=== PATIENT | male | born 1960 | race Native Hawaiian/Other Pacific Islander ===

== ENCOUNTER 2024-03-21 00:03 | Emergency (ER) | payer OTHER, MEDICAID, SELFPAY ==
[2024-03-21] VITALS (94 sets, daily range): BP systolic 148–232; BP diastolic 70–114; PULSE 61–85; RESP 8–35; TEMP 36.7–37.2; O2SAT 92–100; BMI 38.0
--- NOTE | 2024-03-21 03:01 | ED.LOWEXIN ---
HPI - Extremity Injury (Lower) <Violeta Snyder, - Last Filed: 03/22/24 01:34> General Chief Complaint: Extremity Injury, Lower Stated Complaint: Right foot pain Time Seen by Provider: 03/21/24 02:22 Source: patient and family Mode of arrival: Wheelchair Limitations: no limitations History of Present Illness HPI Narrative: 63-year-old male history of hypertension, dyslipidemia, GERD, end-stage renal disease on dialysis for the past 7 years with a left upper extremity fistula presents with complaint of right foot pain and swelling and skin color changes of the great toe as well as 2nd and 3rd toes. Patient is unsure when this started. He does have some neuropathy reported does not check his feet every day. He states it is painful. They noticed it appear swollen, appears discolored almost like ecchymosis. Patient has had a recent will infection and had a topical antifungal but for the entire foot. He does not recall any trauma or injury. He and family did not appreciate any redness. No warmth was reported. No fevers. No chest pain or shortness of breath, no nausea or vomiting, no other GI or urinary symptoms. Patient did recently travel here from [facility] to move permanently to the area. Patient has a established locally for dialysis, he has not had any missed sessions. They are unsure exactly why he is on dialysis but takes multiple medications for hypertension. No reported history of diabetes and on no medication for diabetes. Patient has been taking his medications regularly. He has had prior left upper extremity fistula and prior hip surgery. No known drug allergies. No tobacco, alcohol or recreational drugs. Patient is establishing with Dr. Urias for primary care later this week. He is accompanied by his family. Home medications include lisinopril, gabapentin, hydralazine, statin, pantoprazole, folic acid, oxycodone. Related Data Home Medications Medication Instructions Recorded Confirmed clotrimazole-betamethasone 1 1 applic topical BID 03/21/24 03/21/24 %-0.05 % topical cream folic acid 1 mg tablet 1 mg PO DAILY 03/21/24 03/21/24 gabapentin 300 mg capsule 300 mg PO BEDTIME 03/21/24 03/21/24 hydralazine 50 mg tablet 50 mg PO Q8HR 03/21/24 03/21/24 lisinopril 10 mg tablet 10 mg PO DAILY 03/21/24 03/21/24 omega-3 acid ethyl esters 1 gram 2 cap PO BID 03/21/24 03/21/24 capsule oxycodone 5 mg tablet 5 mg PO BID PRN Severe Pain (Scale 03/21/24 03/21/24 Score 7-10) pantoprazole 40 mg tablet,delayed 40 mg PO DAILY 03/21/24 03/21/24 release simvastatin 10 mg tablet 10 mg PO QPM 03/21/24 03/21/24 Allergies Allergy/AdvReac Type Severity Reaction Status Date / Time No Known Drug Allergies Allergy Verified 03/21/24 00:11 Review of Systems <Violeta Snyder DO - Last Filed: 03/22/24 01:34> Review of Systems ROS Unobtainable: All systems reviewed & are unremarkable except as noted in HPI and below Patient History <Violeta Snyder DO - Last Filed: 03/22/24 01:34> Social History Smoking Status: Never smoker Smoking Status: Never smoker tobacco type: smokeless tobacco Substance Use Type: does not use Exam <Violeta Snyder DO - Last Filed: 03/22/24 01:34> Narrative Exam Narrative: GENERAL: Alert and oriented x three, well-appearing older male in mild distress. HEENT: Head normocephalic, atraumatic, EOMI, pupils reactive, face symmetric, moist mucous membranes NECK: Supple, full range of motion CARDIOVASCULAR: Regular rate and rhythm without murmurs, rubs or gallops. No JVD. No pretibial edema. RESPIRATORY: Breath sounds equal bilaterally, no wheezes rales or rhonchi. No tachypnea or accessory muscle use. ABDOMEN: Soft, nontender. Normoactive bowel sounds all 4 quadrants. No guarding or rebound, rigidity, no mass : No CVA tenderness EXTREMITIES: Normal range of motion, no clubbing. Neurovascularly intact. Patient has swelling, of the great toe, 2nd and 3rd toes with what appears to be ecchymosis, no warmth, no erythema appreciated. There is no clear skin breakdown. There is some fluctuance with palpation. Patient has some sensation to light touch but is nontender to palpation. Cap refill intact bilateral lower extremities. Patient's feet are warm but not hot. No pallor, cyanosis or coldness. Patient has a fistula in the left upper extremity with bruit. NEUROLOGICAL: Cranial nerves II through XII grossly intact. Moving all extremities SKIN: Warm, dry, no petechiae, no rashes or lesions otherwise noted. Initial Vital Signs Initial Vital Signs: Vital Signs Temperature 98.9 F 03/21/24 00:12 Pulse Rate 83 03/21/24 00:12 Respiratory Rate 16 03/21/24 00:12 Blood Pressure 200/95 H 03/21/24 00:12 Pulse Oximetry 100 03/21/24 00:12 Oxygen Delivery Method Room Air 03/21/24 00:12 <Violeta Hooks MD - Last Filed: 03/23/24 00:42> Initial Vital Signs Initial Vital Signs: Vital Signs Temperature 98.9 F 03/21/24 00:12 Pulse Rate 83 03/21/24 00:12 Respiratory Rate 16 03/21/24 00:12 Blood Pressure 200/95 H 03/21/24 00:12 Pulse Oximetry 100 03/21/24 00:12 Oxygen Delivery Method Room Air 03/21/24 00:12 Course <Violeta Snyder DO - Last Filed: 03/22/24 01:34> Orders Ordered: Discontinued Medications Atorvastatin Calcium (Atorvastatin 20 Mg Tablet) 40 mg PO BEDTIME KEVIN Last Admin: 03/21/24 20:57 Dose: 40 mg Documented By: LAINA Dextrose (Dextrose 50 % In Water 25 Gm/50 Ml Syringe) 25 gm IV NOW ONE Stop: 03/21/24 20:39 Last Admin: 03/21/24 20:58 Dose: 25 gm Documented By: LAINA Docusate Sodium (Docusate 100 Mg Capsule) 100 mg PO BID PRN PRN Reason: Constipation Last Admin: 03/21/24 21:51 Dose: 100 mg Documented By: KAREN Folic Acid (Folic Acid 1 Mg Tablet) 1 mg PO NOW ONE Stop: 03/21/24 06:01 Last Admin: 03/21/24 06:36 Dose: 1 mg Documented By: Hydralazine HCl (Hydralazine 25 Mg Tablet) 25 mg PO NOW ONE Stop: 03/21/24 04:25 Last Admin: 03/21/24 05:08 Dose: 25 mg Documented By: Hydralazine HCl (Hydralazine 10 Mg Tablet) 50 mg PO Q8HR KEVIN Hydralazine HCl (Hydralazine 25 Mg Tablet) 25 mg PO NOW ONE Stop: 03/21/24 06:01 Last Admin: 03/21/24 06:36 Dose: 25 mg Documented By: Hydralazine HCl (Hydralazine 20 Mg/Ml Vial) 10 mg IV Q6HR PRN PRN Reason: Hypertension Last Admin: 03/21/24 13:52 Dose: 10 mg Documented By: Admin: 03/21/24 08:09 Dose: 10 mg Documented By: RB Hydralazine HCl (Hydralazine 25 Mg Tablet) 50 mg PO Q8HR KEVIN Last Admin: 03/21/24 21:09 Dose: 50 mg Documented By: Admin: 03/21/24 13:05 Dose: 50 mg Documented By: ANA Ceftriaxone Sodium 2,000 mg/ (Sodium Chloride) 100 mls @ 200 mls/hr IV NOW ONE Stop: 03/21/24 05:08 Last Infusion: 03/21/24 05:50 Dose: Infused Documented By: Admin: 03/21/24 05:13 Dose: 200 mls/hr Documented By: Vancomycin HCl/Dextrose (Vancomycin) 1,500 mg in 300 mls @ 200 mls/hr IV NOW ONE Stop: 03/21/24 06:36 Last Infusion: 03/21/24 07:36 Dose: Infused Documented By: Admin: 03/21/24 05:56 Dose: 200 mls/hr Documented By: Ceftriaxone Sodium 2,000 mg/ (Sodium Chloride) 100 mls @ 200 mls/hr IV NOW ONE Stop: 03/22/24 05:01 Calcium Gluconate 4.65 meq/ (Sodium Chloride) 60 mls @ 180 mls/hr IV NOW ONE Stop: 03/21/24 20:57 Last Infusion: 03/21/24 21:30 Dose: Infused Documented By: Admin: 03/21/24 20:59 Dose: 180 mls/hr Documented By: LAINA Insulin Human Regular (Insulin Regular 100 Unit/Ml 3 Ml Vial) 5 unit IV NOW ONE Stop: 03/21/24 20:39 Last Admin: 03/21/24 21:03 Dose: 5 unit Documented By: LAINA Co-signed By: HEMANTH Lisinopril (Lisinopril 20 Mg Tablet) 40 mg PO DAILY [facility] Last Admin: 03/21/24 06:36 Dose: 40 mg Documented By: Lisinopril (Lisinopril 20 Mg Tablet) 40 mg PO DAILY [facility] Morphine Sulfate (Morphine 4 Mg/Ml Inj) 4 mg IV NOW ONE Stop: 03/21/24 03:19 Last Admin: 03/21/24 04:15 Dose: 4 mg Documented By: Morphine Sulfate (Morphine 4 Mg/Ml Inj) 4 mg IV NOW ONE Stop: 03/21/24 20:05 Last Admin: 03/21/24 21:02 Dose: 4 mg Documented By: LAINA Oxycodone HCl (Oxycodone Ir 5 Mg Tablet) 5 mg PO Q6H PRN PRN Reason: Pain, Moderate (4-6) Pantoprazole Sodium (Pantoprazole Dr 40 Mg Tablet) 40 mg PO 0700 [facility] Last Admin: 03/21/24 07:29 Dose: Not Given Documented By: Admin: 03/21/24 06:36 Dose: 40 mg Documented By: Sodium Bicarbonate (Sodium Bicarb 8.4% Syringe) 100 meq 1 meq/kg (100 meq) IV NOW ONE Stop: 03/21/24 20:39 Last Admin: 03/21/24 21:33 Dose: 100 meq Documented By: LAINA Vancomycin HCl (Vancomycin Per Pharmacy) 1 request MISC NOW PRN PRN Reason: osteomyelitis Vital Signs Vital signs: Vital Signs - 8 hr 03/21/24 18:00 03/21/24 18:00 03/21/24 18:30 Pulse Rate 74 74 Respiratory Rate 13 12 Blood Pressure 203/97 H Pulse Oximetry 94 96 03/21/24 18:31 03/21/24 18:31 03/21/24 19:00 Pulse Rate 74 74 Respiratory Rate 16 14 Blood Pressure 227/91 H Pulse Oximetry 95 94 03/21/24 19:01 03/21/24 19:01 03/21/24 19:30 Pulse Rate 75 76 Respiratory Rate 18 17 Blood Pressure 218/93 H Pulse Oximetry 96 95 03/21/24 19:31 03/21/24 19:31 03/21/24 20:00 Pulse Rate 77 76 Respiratory Rate 13 15 Blood Pressure 220/103 H Pulse Oximetry 94 97 03/21/24 20:01 03/21/24 20:01 03/21/24 20:30 Pulse Rate 76 78 Respiratory Rate 14 13 Blood Pressure 193/91 H Pulse Oximetry 95 95 03/21/24 20:30 03/21/24 21:00 03/21/24 21:00 Pulse Rate 78 Respiratory Rate 13 Blood Pressure 190/88 H 173/75 H Pulse Oximetry 97 03/21/24 21:30 03/21/24 22:00 03/21/24 22:30 Pulse Rate 80 85 80 Respiratory Rate 21 18 15 Blood Pressure Pulse Oximetry 03/21/24 22:54 03/21/24 23:00 03/21/24 23:30 Pulse Rate 75 75 Respiratory Rate 15 17 Blood Pressure 173/75 H Pulse Oximetry 03/22/24 00:00 03/22/24 00:30 03/22/24 00:54 Pulse Rate 78 77 Respiratory Rate 15 17 Blood Pressure 227/91 H Pulse Oximetry 03/22/24 00:54 03/22/24 00:57 Pulse Rate 79 80 Respiratory Rate 13 17 Blood Pressure Pulse Oximetry 95 98 <Violeta Hooks MD - Last Filed: 03/23/24 00:42> Orders Ordered: Discontinued Medications Atorvastatin Calcium (Atorvastatin 20 Mg Tablet) 40 mg PO BEDTIME KEVIN Last Admin: 03/21/24 20:57 Dose: 40 mg Documented By: LAINA Dextrose (Dextrose 50 % In Water 25 Gm/50 Ml Syringe) 25 gm IV NOW ONE Stop: 03/21/24 20:39 Last Admin: 03/21/24 20:58 Dose: 25 gm Documented By: LAINA Docusate Sodium (Docusate 100 Mg Capsule) 100 mg PO BID PRN PRN Reason: Constipation Last Admin: 03/21/24 21:51 Dose: 100 mg Documented By: KAREN Folic Acid (Folic Acid 1 Mg Tablet) 1 mg PO NOW ONE Stop: 03/21/24 06:01 Last Admin: 03/21/24 06:36 Dose: 1 mg Documented By: Hydralazine HCl (Hydralazine 25 Mg Tablet) 25 mg PO NOW ONE Stop: 03/21/24 04:25 Last Admin: 03/21/24 05:08 Dose: 25 mg Documented By: Hydralazine HCl (Hydralazine 10 Mg Tablet) 50 mg PO Q8HR KEVIN Hydralazine HCl (Hydralazine 25 Mg Tablet) 25 mg PO NOW ONE Stop: 03/21/24 06:01 Last Admin: 03/21/24 06:36 Dose: 25 mg Documented By: Hydralazine HCl (Hydralazine 20 Mg/Ml Vial) 10 mg IV Q6HR PRN PRN Reason: Hypertension Last Admin: 03/21/24 13:52 Dose: 10 mg Documented By: Admin: 03/21/24 08:09 Dose: 10 mg Documented By: RB Hydralazine HCl (Hydralazine 25 Mg Tablet) 50 mg PO Q8HR [facility] Last Admin: 03/21/24 21:09 Dose: 50 mg Documented By: Admin: 03/21/24 13:05 Dose: 50 mg Documented By: ANA Ceftriaxone Sodium 2,000 mg/ (Sodium Chloride) 100 mls @ 200 mls/hr IV NOW ONE Stop: 03/21/24 05:08 Last Infusion: 03/21/24 05:50 Dose: Infused Documented By: Admin: 03/21/24 05:13 Dose: 200 mls/hr Documented By: Vancomycin HCl/Dextrose (Vancomycin) 1,500 mg in 300 mls @ 200 mls/hr IV NOW ONE Stop: 03/21/24 06:36 Last Infusion: 03/21/24 07:36 Dose: Infused Documented By: Admin: 03/21/24 05:56 Dose: 200 mls/hr Documented By: Ceftriaxone Sodium 2,000 mg/ (Sodium Chloride) 100 mls @ 200 mls/hr IV NOW ONE Stop: 03/22/24 05:01 Calcium Gluconate 4.65 meq/ (Sodium Chloride) 60 mls @ 180 mls/hr IV NOW ONE Stop: 03/21/24 20:57 Last Infusion: 03/21/24 21:30 Dose: Infused Documented By: Admin: 03/21/24 20:59 Dose: 180 mls/hr Documented By: LAINA Insulin Human Regular (Insulin Regular 100 Unit/Ml 3 Ml Vial) 5 unit IV NOW ONE Stop: 03/21/24 20:39 Last Admin: 03/21/24 21:03 Dose: 5 unit Documented By: LAINA Co-signed By: HEMANTH Lisinopril (Lisinopril 20 Mg Tablet) 40 mg PO DAILY [facility] Last Admin: 03/21/24 06:36 Dose: 40 mg Documented By: Lisinopril (Lisinopril 20 Mg Tablet) 40 mg PO DAILY [facility] Morphine Sulfate (Morphine 4 Mg/Ml Inj) 4 mg IV NOW ONE Stop: 03/21/24 03:19 Last Admin: 03/21/24 04:15 Dose: 4 mg Documented By: Morphine Sulfate (Morphine 4 Mg/Ml Inj) 4 mg IV NOW ONE Stop: 03/21/24 20:05 Last Admin: 03/21/24 21:02 Dose: 4 mg Documented By: LAINA Oxycodone HCl (Oxycodone Ir 5 Mg Tablet) 5 mg PO Q6H PRN PRN Reason: Pain, Moderate (4-6) Pantoprazole Sodium (Pantoprazole Dr 40 Mg Tablet) 40 mg PO 0700 [facility] Last Admin: 03/21/24 07:29 Dose: Not Given Documented By: Admin: 03/21/24 06:36 Dose: 40 mg Documented By: Sodium Bicarbonate (Sodium Bicarb 8.4% Syringe) 100 meq 1 meq/kg (100 meq) IV NOW ONE Stop: 03/21/24 20:39 Last Admin: 03/21/24 21:33 Dose: 100 meq Documented By: LAINA Vancomycin HCl (Vancomycin Per Pharmacy) 1 request MISC NOW PRN PRN Reason: osteomyelitis Vital Signs Vital signs: Vital Signs - 8 hr 03/21/24 18:00 03/21/24 18:00 03/21/24 18:30 Pulse Rate 74 74 Respiratory Rate 13 12 Blood Pressure 203/97 H Pulse Oximetry 94 96 03/21/24 18:31 03/21/24 18:31 03/21/24 19:00 Pulse Rate 74 74 Respiratory Rate 16 14 Blood Pressure 227/91 H Pulse Oximetry 95 94 03/21/24 19:01 03/21/24 19:01 03/21/24 19:30 Pulse Rate 75 76 Respiratory Rate 18 17 Blood Pressure 218/93 H Pulse Oximetry 96 95 03/21/24 19:31 03/21/24 19:31 03/21/24 20:00 Pulse Rate 77 76 Respiratory Rate 13 15 Blood Pressure 220/103 H Pulse Oximetry 94 97 03/21/24 20:01 03/21/24 20:01 03/21/24 20:30 Pulse Rate 76 78 Respiratory Rate 14 13 Blood Pressure 193/91 H Pulse Oximetry 95 95 03/21/24 20:30 03/21/24 21:00 03/21/24 21:00 Pulse Rate 78 Respiratory Rate 13 Blood Pressure 190/88 H 173/75 H Pulse Oximetry 97 03/21/24 21:30 03/21/24 22:00 03/21/24 22:30 Pulse Rate 80 85 80 Respiratory Rate 21 18 15 Blood Pressure Pulse Oximetry 03/21/24 22:54 03/21/24 23:00 03/21/24 23:30 Pulse Rate 75 75 Respiratory Rate 15 17 Blood Pressure 173/75 H Pulse Oximetry 03/22/24 00:00 03/22/24 00:30 03/22/24 00:54 Pulse Rate 78 77 Respiratory Rate 15 17 Blood Pressure 227/91 H Pulse Oximetry 03/22/24 00:54 03/22/24 00:57 Pulse Rate 79 80 Respiratory Rate 13 17 Blood Pressure Pulse Oximetry 95 98 MDM - Extremity Injury (Lower) <Violeta Snyder, DO - Last Filed: 03/22/24 01:34> Lab Data 03/21/24 20:10 03/21/24 20:10 Labs: Lab Results 03/21/24 03/21/24 Range/Units 04:02 20:10 WBC 9.3 9.7 (4.5-11.0) X10^3/uL RBC 3.03 L 2.85 L (4.5-5.9) X10^6/uL Hgb 9.8 L 9.3 L (13.5-17.5) g/dL Hct 29.2 L 27.2 L (41-53) % MCV 96.3 95.6 (80-100) fL MCH 32.3 32.8 (26-34) PG MCHC 33.5 34.3 (30-36) % RDW 14.6 14.7 (11.6-14.8) % Plt Count 264 249 (150-400) X10^3/uL Neut % (Auto) 75.9 H 78.2 H (50-75) % Lymph % (Auto) 13.1 L 7.8 L (25-40) % [place] % (Auto) 7.6 7.5 (3-14) % Eos % (Auto) 2.5 3.4 (2-4) % Baso % (Auto) 0.9 3.1 H (0-2) % Neut # (Auto) 7100 H 7600 H (2841-0949) /uL Lymph # (Auto) 1200 800 L (9080-1965) /uL [place] # (Auto) 700 700 (0-900) /uL Eos # (Auto) 200 300 (0-450) /uL Baso # (Auto) 100 300 H (0-100) /uL ESR > 140 H (0-15) MM/HR PT 10.2 (9.4-12.5) SECONDS INR 0.9 (0.9-1.3) APTT 43 H (25.1-36.5) SECONDS Sodium 134 L 133 L (137-145) mmol/L Potassium 5.3 H 6.3 H* (3.4-5.1) mmol/L Chloride 97 L 96 L (98-107) mmol/L Carbon Dioxide 28 24 (22-32) mmol/L BUN 46 H 55 H (9-20) mg/dL Creatinine 10.45 H* 10.52 H* (0.66-1.25) mg/dL Estimated GFR 5 L 5 L (>60) mL/min BUN/Creatinine Ratio 4.4 L 5.2 L (6-22) Glucose 130 H 114 H (80-110) mg/dL Calcium 9.1 8.8 (8.4-10.2) mg/dL Total Bilirubin 0.9 0.8 (0.2-1.3) mg/dL AST 77 H 56 (17-59) IU/L ALT 40 32 (<50) IU/L Alkaline Phosphatase 181 H 157 H (38-126) U/L C-Reactive Protein 1.2 H (<1.0) mg/dL Total Protein 8.3 H 7.5 (6.3-8.2) g/dL Albumin 4.0 3.8 (3.5-5.0) g/dL Globulin 4.3 H 3.7 (1.7-4.1) g/dL Albumin/Globulin Ratio 0.9 L 1.0 (1.0-2.8) Procalcitonin 1.89 H 1.78 H (<0.5) ng/mL Point of Care Testing Glucose POC 200 Imaging Data Extremity x-ray #1: Radiologist's Impression: Soft tissue swelling, osteoporosis, suboptimal positioning. Question erosive changes lateral aspect base of 1st proximal phalanx maybe related to inflammatory arthritis such as rheumatoid but can not exclude osteomyelitis. No acute fracture otherwise noted. No dislocation. Severe arteriosclerosis. ECG Data Attestation: I personally reviewed and interpreted this ECG as follows: Interpretation: Sinus rhythm rate of 78 HI 194 QRS of 102 QTC 449, patient has peaked T-waves throughout no other acute EKG changes. MDM Narrative Medical decision making narrative: Labs show white count 9.3 hemoglobin of 9.8, platelets of 264. Priors for comparison but patient is on dialysis so may have chronic anemia secondary to his kidney disease. INR 0.9, sodium is 134 potassium 5.3 chloride 97 BUN 46 creatinine of 10.45, patient has known end-stage renal disease, glucose is 130 AST 77 alk-phos 181 C-reactive protein 1.2, procalcitonin is 1.89, ESR is greater than 140 X-ray of patient's right foot shows swelling with questionable erosive changes lateral base of the 1st proximal phalanx which is where patient's symptoms are. Maybe related to inflammatory arthritis versus rheumatoid but can not exclude osteomyelitis. Patient is started Rocephin and vancomycin. Patient is end-stage renal disease on dialysis does have some electrolyte abnormalities but not requiring adjustment at time. Patient would require transfer for treatment of his osteomyelitis as we do not have dialysis here. Patient does not appear to be septic, he has been hypertensive was given small dose of hydralazine and we will order his a.m. home medications including BP meds. Spoke with patient and family, they are agreeable to transfer. He did have dialysis on . They are not sure who his spindle setter is as he is fairly new to them. But he typically gets his dialysis in [place]. Call to multiple facilities no current bed availability. [facility] was contacted. Patient's home medications were ordered including his blood pressure medications. Patient signed out to Dr. Hooks while attempting transfer Dr. Hooks -care of patient is signed out to me by Dr. Snyder. Patient hypertensive, was started with IV hydralazine q.6 hours. 03/21/2024: Dr. Snyder: Patient received in sign-out, patient was seen initially by myself. Has continued to be hypertensive had somewhat improvement with his medications. He still has some pain in his foot but denies other symptoms currently he denies any chest pain or shortness of breath when we evaluated. Patient is was accepted at [facility] earlier this morning by Dr. Neves but no bed availability and potentially no bed availability until Saturday. It is Saturday today. Patient's labs were repeated an EKG was obtained. CBC shows hemoglobin fairly stable at 9.3, white count 9.7 with platelets of 249. Chemistries show persistently elevated creatinine with a potassium of 6.3 not hemolyzed, sodium of 133 and chloride 96 with a CO2 of 24 and a BUN of 55, procalcitonin is 1.78 slightly improved from prior. EKG does show appear to be some peaked T-waves throughout. Patient was given calcium gluconate, bicarb, insulin with dextrose, Lokelma for hyperkalemia. [facility] as well as [facility] were re-contacted to update them of changes to help facilitate sooner transfer. Patient did not have his dialysis earlier today because he was here in the department and we do have it available. [facility] printed patient's bed to telemetry but states will not have any availability tonight. [facility] also contacted and state no better alternatives currently. Spoke with Dr. Singh, gluing machine operator electronic at [facility]. Accepts for transfer we will be upgraded to ICU as patient likely needs emergent dialysis tonight. <Violeta Hooks MD - Last Filed: 03/23/24 00:42> Lab Data Labs: Lab Results 03/21/24 03/21/24 Range/Units 04:02 20:10 WBC 9.3 9.7 (4.5-11.0) X10^3/uL RBC 3.03 L 2.85 L (4.5-5.9) X10^6/uL Hgb 9.8 L 9.3 L (13.5-17.5) g/dL Hct 29.2 L 27.2 L (41-53) % MCV 96.3 95.6 (80-100) fL MCH 32.3 32.8 (26-34) PG MCHC 33.5 34.3 (30-36) % RDW 14.6 14.7 (11.6-14.8) % Plt Count 264 249 (150-400) X10^3/uL Neut % (Auto) 75.9 H 78.2 H (50-75) % Lymph % (Auto) 13.1 L 7.8 L (25-40) % [place] % (Auto) 7.6 7.5 (3-14) % Eos % (Auto) 2.5 3.4 (2-4) % Baso % (Auto) 0.9 3.1 H (0-2) % Neut # (Auto) 7100 H 7600 H (8472-6210) /uL Lymph # (Auto) 1200 800 L (6132-0302) /uL [place] # (Auto) 700 700 (0-900) /uL Eos # (Auto) 200 300 (0-450) /uL Baso # (Auto) 100 300 H (0-100) /uL ESR > 140 H (0-15) MM/HR PT 10.2 (9.4-12.5) SECONDS INR 0.9 (0.9-1.3) APTT 43 H (25.1-36.5) SECONDS Sodium 134 L 133 L (137-145) mmol/L Potassium 5.3 H 6.3 H* (3.4-5.1) mmol/L Chloride 97 L 96 L (98-107) mmol/L Carbon Dioxide 28 24 (22-32) mmol/L BUN 46 H 55 H (9-20) mg/dL Creatinine 10.45 H* 10.52 H* (0.66-1.25) mg/dL Estimated GFR 5 L 5 L (>60) mL/min BUN/Creatinine Ratio 4.4 L 5.2 L (6-22) Glucose 130 H 114 H (80-110) mg/dL Calcium 9.1 8.8 (8.4-10.2) mg/dL Total Bilirubin 0.9 0.8 (0.2-1.3) mg/dL AST 77 H 56 (17-59) IU/L ALT 40 32 (<50) IU/L Alkaline Phosphatase 181 H 157 H (38-126) U/L C-Reactive Protein 1.2 H (<1.0) mg/dL Total Protein 8.3 H 7.5 (6.3-8.2) g/dL Albumin 4.0 3.8 (3.5-5.0) g/dL Globulin 4.3 H 3.7 (1.7-4.1) g/dL Albumin/Globulin Ratio 0.9 L 1.0 (1.0-2.8) Procalcitonin 1.89 H 1.78 H (<0.5) ng/mL Point of Care Testing Glucose POC 200 MDM Narrative Medical decision making narrative: Labs show white count 9.3 hemoglobin of 9.8, platelets of 264. Priors for comparison but patient is on dialysis so may have chronic anemia secondary to his kidney disease. INR 0.9, sodium is 134 potassium 5.3 chloride 97 BUN 46 creatinine of 10.45, patient has known end-stage renal disease, glucose is 130 AST 77 alk-phos 181 C-reactive protein 1.2, procalcitonin is 1.89, ESR is greater than 140 X-ray of patient's right foot shows swelling with questionable erosive changes lateral base of the 1st proximal phalanx which is where patient's symptoms are. Maybe related to inflammatory arthritis versus rheumatoid but can not exclude osteomyelitis. Patient is started Rocephin and vancomycin. Patient is end-stage renal disease on dialysis does have some electrolyte abnormalities but not requiring adjustment at time. Patient would require transfer for treatment of his osteomyelitis as we do not have dialysis here. Patient does not appear to be septic, he has been hypertensive was given small dose of hydralazine and we will order his a.m. home medications including BP meds. Spoke with patient and family, they are agreeable to transfer. He did have dialysis on . They are not sure who his spindle setter is as he is fairly new to them. But he typically gets his dialysis in [place]. Call to multiple facilities no current bed availability. [facility] was contacted. Patient's home medications were ordered including his blood pressure medications. Patient signed out to Dr. oHoks while attempting transfer Dr. Hooks -care of patient is signed out to me by Dr. Snyder. Patient hypertensive Critical Care Time <Violeta Snyder, - Last Filed: 03/22/24 01:34> Critical Care Time Critical Care Time: Yes Total Critical Care Time: 40 Attestation: The high probability of a clinically significant, sudden or life threatening deterioration of the cardiac, renal system(s) required my full and direct attention, intervention and personal management. The aggregate critical care time was 40 minutes. This time is in addition to time spent performing reported procedures but includes the following: [x] Data Review and interpretation [x] Patient assessment and monitoring of vital signs [x] Documentation [x] Medication orders and management Discharge Plan Departure Patient Disposition: [facility] Clinical Impression: Acute osteomyelitis of toe of right foot, ESRD on dialysis, Hyperkalemia Prescriptions: No Action simvastatin 10 mg Tablet 10 mg PO QPM pantoprazole 40 mg Tablet,Delayed Release (Dr/Ec) 40 mg PO DAILY Patient Comments: Takes in AM clotrimazole-betamethasone 1-0.05 % Cream 1 applic TOPICAL BID Patient Comments: Start date 03/07/24 Rx Instructions: Apply to groin twice daily x 14 days. lisinopril 10 mg Tablet 10 mg PO DAILY Rx Instructions: Take 1 tablet by mouth in AM on non dialysis days, on dialysis days take after dialysis (skip if BP is less than 130 systolic post dialysis) gabapentin 300 mg Capsule 300 mg PO BEDTIME folic acid 1 mg Tablet 1 mg PO DAILY Patient Comments: Takes in the AM hydralazine 50 mg Tablet 50 mg PO Q8HR oxycodone 5 mg Tablet 5 mg PO BID PRN (Reason: Severe Pain (Scale Score 7-10)) omega-3 acid ethyl esters 1 gram Capsule 2 cap PO BID
--- NOTE | 2024-03-21 03:14 | PC.NURSE ---
Pt has bilateral lower extremity, neuropathy. Recently moved from [facility]. Goes to Dialysis on T, , Sat in [place]. Has new patient appointment this coming week. Pain in his right great toe and 2nd toe have been bothering him x 1 week.
--- NOTE | 2024-03-21 03:15 | DI.RAD.S_ITS ---
PROCEDURE: XR FOOT RT MIN 3V INDICATIONS: swelling, bruising pain toes 1-3 TECHNIQUE: 3 views of the foot were acquired. COMPARISON: None. FINDINGS: Bones: Plantar calcaneus enthesopathy. Moderate scattered degenerative changes in the midfoot and forefoot. No acute displaced fracture or dislocation. Questionable cortical irregularity at the lateral proximal phalanx. No definite radiographic erosion otherwise. There is generalized osteopenia, which can limit evaluation. Soft tissues: Vascular calcifications. IMPRESSION: Degenerative changes. No acute displaced fracture or dislocation. Questionable cortical irregularity at the lateral aspect of the 1st proximal phalanx. If there is high concern for further derangement, consider MRI evaluation. Diffuse vascular calcifications. Agree with prelim report. Dictated by: Sampson Rose M.D. on 03/21/2024 at 9:03 Approved by: Sampson Rose M.D. on 03/21/2024 at 9:05
[2024-03-21 04:15] LABS: Add Manual Diff / Slide Review NO; Basophils Absolute Auto 100 /uL (0-100); Basophils Percent Auto 0.9 % (0-2); Eosinophils Absolute Auto 200 /uL (0-450); Eosinophils Percent Auto 2.5 % (2-4); Hematocrit 29.2 % (41-53); Hemoglobin 9.8 g/dL (13.5-17.5); Lymphocytes Absolute Auto 1200 /uL (1100-4500); Lymphocytes Percent Auto 13.1 % (25-40); Mean Corpuscular HGB Conc 33.5 % (30-36); Mean Corpuscular Hemoglobin 32.3 PG (26-34); Mean Corpuscular Volume 96.3 fL (80-100); Monocytes Absolute Auto 700 /uL (0-900); Monocytes Percent Auto 7.6 % (3-14); Neutrophils Absolute Auto 7100 /uL (1500-7000); Neutrophils Percent Auto 75.9 % (50-75); Platelet Count 264 X10^3/uL (150-400); Red Blood Cell Count 3.03 X10^6/uL (4.5-5.9); Red Cell Distribution Width 14.6 % (11.6-14.8); White Blood Cell Count 9.3 X10^3/uL (4.5-11.0)
[2024-03-21] MEDS: MORPHINE 4 MG/ML INJ IV ×2 (04:15→21:02)
[2024-03-21 04:27] LABS: INR 0.9 (0.9-1.3); Prothrombin Time 10.2 SECONDS (9.4-12.5)
[2024-03-21 04:29] LABS: PTT Partial Thromboplastin Tim 43 SECONDS (25.1-36.5)
[2024-03-21 04:34] LABS: Alanine Aminotransferase 40 IU/L (<50); Albumin Globulin Ratio 0.9 (1.0-2.8); Alkaline Phosphatase 181 U/L (38-126); Aspartate Aminotransferase 77 IU/L (17-59); BUN Creatinine Ratio 4.4 (6-22); Bilirubin Total 0.9 mg/dL (0.2-1.3); Blood Urea Nitrogen 46 mg/dL (9-20); C-Reactive Protein Quant 1.2 mg/dL (<1.0); Calcium 9.1 mg/dL (8.4-10.2); Carbon Dioxide 28 mmol/L (22-32); Chloride 97 mmol/L (98-107); Estimated Glomerular Filt Rate 5 mL/min (>60); Globulin 4.3 g/dL (1.7-4.1); Glucose 130 mg/dL (80-110); HEMOLYSIS < 15 (0-50); Potassium 5.3 mmol/L (3.4-5.1); Sodium 134 mmol/L (137-145); Total Protein 8.3 g/dL (6.3-8.2)
[2024-03-21 04:47] LABS: Erythrocyte Sedimentation Rate > 140 MM/HR (0-15); Procalcitonin 1.89 ng/mL (<0.5)
[2024-03-21] MEDS: HYDRALAZINE 25 MG TABLET PO ×2 (05:08→06:36)
[2024-03-21] MEDS: cefTRIAXone 2,000 MG in SODIUM CHLORIDE 0.9% 100 ML 200 MG IV (05:13)
[2024-03-21] MEDS: VANCOMYCIN 1,500 MG/300 ML PIGGYBACK 200 MG IV (05:56)
--- NOTE | 2024-03-21 06:03 | PC.NURSE ---
Addendum entered by Cristiana Sexton CNA 03/21/24 21:01: 1930- was told in report that [facility] would have a bed tonight, when I called their bed placement # [phone] they said no beds tonight and most likely not on 03/22 1945- left with [facility] 2099-Updated [facility] and [facility] of new lab values and changes to EKG Original Note: 0520- added pt to [facility] and [facility] waitlist 0530- prov said call back after 07 0535- and [facility] both denied due to being at capacity 0540- [facility] on the waitlist
[2024-03-21] MEDS: FOLIC ACID 1 MG TABLET PO (06:36)
[2024-03-21] MEDS: PANTOPRAZOLE DR 40 MG TABLET PO (06:36)
[2024-03-21] MEDS: lisinopriL 20 MG TABLET 40 MG PO (06:36)
[2024-03-21] MEDS: HYDRALAZINE 20 MG/ML VIAL 10 MG IV ×2 (08:09→13:52)
[2024-03-21] MEDS: HYDRALAZINE 25 MG TABLET 50 MG PO ×2 (13:05→21:09)
--- NOTE | 2024-03-21 19:30 | PC.NURSE ---
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
[2024-03-21 20:33] LABS: Add Manual Diff / Slide Review NO; Basophils Absolute Auto 300 /uL (0-100); Basophils Percent Auto 3.1 % (0-2); Eosinophils Absolute Auto 300 /uL (0-450); Eosinophils Percent Auto 3.4 % (2-4); Hematocrit 27.2 % (41-53); Hemoglobin 9.3 g/dL (13.5-17.5); Lymphocytes Absolute Auto 800 /uL (1100-4500); Lymphocytes Percent Auto 7.8 % (25-40); Mean Corpuscular HGB Conc 34.3 % (30-36); Mean Corpuscular Hemoglobin 32.8 PG (26-34); Mean Corpuscular Volume 95.6 fL (80-100); Monocytes Absolute Auto 700 /uL (0-900); Monocytes Percent Auto 7.5 % (3-14); Neutrophils Absolute Auto 7600 /uL (1500-7000); Neutrophils Percent Auto 78.2 % (50-75); Platelet Count 249 X10^3/uL (150-400); Red Blood Cell Count 2.85 X10^6/uL (4.5-5.9); Red Cell Distribution Width 14.7 % (11.6-14.8); White Blood Cell Count 9.7 X10^3/uL (4.5-11.0)
[2024-03-21 20:34] LABS: Alanine Aminotransferase 32 IU/L (<50); Albumin 3.8 g/dL (3.5-5.0); Alkaline Phosphatase 157 U/L (38-126); Aspartate Aminotransferase 56 IU/L (17-59); BUN Creatinine Ratio 5.2 (6-22); Bilirubin Total 0.8 mg/dL (0.2-1.3); Blood Urea Nitrogen 55 mg/dL (9-20); Calcium 8.8 mg/dL (8.4-10.2); Carbon Dioxide 24 mmol/L (22-32); Chloride 96 mmol/L (98-107); Estimated Glomerular Filt Rate 5 mL/min (>60); Globulin 3.7 g/dL (1.7-4.1); Glucose 114 mg/dL (80-110); HEMOLYSIS < 15 (0-50); Sodium 133 mmol/L (137-145); Total Protein 7.5 g/dL (6.3-8.2)
[2024-03-21 20:37] LABS: Potassium 6.3 mmol/L (3.4-5.1)
--- NOTE | 2024-03-21 20:51 | EKG_ITS ---
[address] [address] Test Date: 2024-03-21 Pat Name: José Miguel Girard Department: Room: Gender: Male [employer]: ANNIE : 1960 Requested By: Order Number: [id number] Reading MD: Aldo Urrutia Measurements Intervals [place] Rate: 78 P: 63 MD: 194 QRS: 40 QRSD: 102 T: 64 QT: 394 QTc: 449 Interpretive Statements Normal sinus rhythm Electronically Signed On 03-23-2024 16:33:58 PDT by Aldo Urrutia
[2024-03-21 20:52] LABS: Procalcitonin 1.78 ng/mL (<0.5)
[2024-03-21] MEDS: ATORVASTATIN 20 MG TABLET 40 MG PO (20:57)
[2024-03-21] MEDS: DEXTROSE 50 % IN WATER 25 GM/50 ML SYRINGE IV (20:58)
[2024-03-21] MEDS: CALCIUM GLUCONATE 4.65 MEQ in SODIUM CHLORIDE 0.9% 50 ML 180 MEQ IV (20:59)
[2024-03-21] MEDS: SODIUM ZIRCONIUM CYCLOSILICATE 10 GM POWD.PACK PO (21:02)
[2024-03-21] MEDS: INSULIN REGULAR 100 UNIT/ML 3 ML VIAL IV (21:03)
[2024-03-21] MEDS: SODIUM BICARB 8.4% SYRINGE 100 MEQ IV (21:33)
[2024-03-21] MEDS: DOCUSATE 100 MG CAPSULE PO (21:51)
[2024-03-22] VITALS: PULSE 78; RESP 15
[2024-03-22 00:30] VITALS: PULSE 77; RESP 17
[2024-03-22 00:54] VITALS: BP 227/91; PULSE 79; RESP 13; O2SAT 95
[2024-03-22 00:57] VITALS: PULSE 80; RESP 17; O2SAT 98
== END 2024-03-22 01:19 | disposition short-term general hospital (02) ==
PROVIDERS: Emergency Provider Emergency Medicine
DX: M86.171 Other acute osteomyelitis, right ankle and foot (principal); E87.5 Hyperkalemia; N18.6 End stage renal disease; Z99.2 Dependence on renal dialysis; Z79.899 Other long term (current) drug therapy
CPT/HCPCS: 36415; 73630; 80053; 82962; 84145; 85025; 85610; 85651; 85730; 86140; 87040; 93005; 96361; 96365; 96366; 96367; 96375; 96376; 99284; J0360; J0612; J0696; J2270

== ENCOUNTER → 2024-03-27 13:59 | Outpatient (CLI) | payer OTHER, MEDICAID, SELFPAY ==
--- NOTE | 2024-03-27 14:01 | DI.RAD.S_ITS ---
PROCEDURE: XR HIP W PEL IF DONE RT 2V INDICATIONS: R hip pain TECHNIQUE: AP pelvis with lateral view of the right hip. COMPARISON: None. FINDINGS: Bones: Postsurgical changes are seen from prior right posterior acetabular fracture fixation with 2 metal screws. There are asymmetric severe degenerative changes in the right hip with full-thickness joint space narrowing, subchondral cystic changes, subchondral sclerosis, marginal osteophytes, and remodeling of the articular surfaces. Moderate degenerative changes are seen in the contralateral left hip. No acute fractures or dislocations. Pelvic ring appears intact. No suspicious bony lesions. Soft tissues: The visualized bowel gas pattern is normal. No suspicious soft tissue calcifications. IMPRESSION: 1. Postsurgical changes from prior right acetabular fracture fixation. 2. Severe asymmetric right hip osteoarthrosis with remodeling of the articular surfaces. 3. Moderate left hip osteoarthrosis. Approved by: Otilio Lantigua M.D. on 03/27/2024 at 21:17
== END ==
PROVIDERS: PCP Family Medicine; Referring Provider Family Medicine; Visit Provider Family Medicine
DX: M16.0 Bilateral primary osteoarthritis of hip (principal); M25.551 Pain in right hip; S32.491 Other specified fracture of right acetabulum
CPT/HCPCS: 73502

== ENCOUNTER → 2024-04-30 18:19 | Outpatient (CLI) | payer OTHER, MEDICAID, SELFPAY ==
--- NOTE | 2024-04-30 18:20 | DI.RAD.S_ITS ---
PROCEDURE: XR KNEE LT 3V INDICATIONS: Left knee pain TECHNIQUE: 3 views of the knee were acquired. COMPARISON: None. FINDINGS: Bones: No fractures or dislocations. Mild joint space loss. Small osteophytes. No suspicious bony lesions. Soft tissues: No joint effusion. No suspicious soft tissue calcifications. Arterial vascular calcifications. IMPRESSION: Mild moderate left knee DJD. Dictated by: Steve Ndiaye M.D. on 04/30/2024 at 21:50 Approved by: Steve Ndiaye M.D. on 04/30/2024 at 21:51
== END ==
PROVIDERS: PCP Family Medicine; Referring Provider Nurse Practitioner Family; Visit Provider Nurse Practitioner Family
DX: M17.12 Unilateral primary osteoarthritis, left knee (principal); M25.562 Pain in left knee
CPT/HCPCS: 73562

== ENCOUNTER → 2024-05-11 15:40 | Outpatient (CLI) | payer OTHER, MEDICAID, SELFPAY ==
[2024-05-11 16:23] LABS: Add Manual Diff / Slide Review NO; Basophils Absolute Auto 0 /uL (0-100); Basophils Percent Auto 0.4 % (0-2); Eosinophils Absolute Auto 200 /uL (0-450); Eosinophils Percent Auto 2.6 % (2-4); Hematocrit 23.5 % (41-53); Hemoglobin 8.1 g/dL (13.5-17.5); Lymphocytes Absolute Auto 1000 /uL (1100-4500); Lymphocytes Percent Auto 15.1 % (25-40); Mean Corpuscular HGB Conc 34.5 % (30-36); Mean Corpuscular Hemoglobin 33.6 PG (26-34); Mean Corpuscular Volume 97.3 fL (80-100); Monocytes Absolute Auto 400 /uL (0-900); Monocytes Percent Auto 5.8 % (3-14); Neutrophils Absolute Auto 5100 /uL (1500-7000); Neutrophils Percent Auto 76.1 % (50-75); Platelet Count 159 X10^3/uL (150-400); Red Blood Cell Count 2.42 X10^6/uL (4.5-5.9); Red Cell Distribution Width 14.5 % (11.6-14.8); White Blood Cell Count 6.7 X10^3/uL (4.5-11.0)
[2024-05-11 16:59] LABS: Alanine Aminotransferase 12 IU/L (<50); Albumin 3.4 g/dL (3.5-5.0); Albumin Globulin Ratio 0.9 (1.0-2.8); Alkaline Phosphatase 122 U/L (38-126); Aspartate Aminotransferase 38 IU/L (17-59); BUN Creatinine Ratio 4.2 (6-22); Bilirubin Total 0.6 mg/dL (0.2-1.3); Blood Urea Nitrogen 42 mg/dL (9-20); Calcium 8.3 mg/dL (8.4-10.2); Carbon Dioxide 27 mmol/L (22-32); Chloride 95 mmol/L (98-107); Cholesterol 75 mg/dL (140-199); Estimated Glomerular Filt Rate 5 mL/min (>60); Globulin 3.6 g/dL (1.7-4.1); Glucose 122 mg/dL (80-110); HDL Cholesterol 27 mg/dL (40-60); HEMOLYSIS < 15 (0-50); LDL Cholesterol Calculated 23 mg/dL (<100); Potassium 3.9 mmol/L (3.4-5.1); Sodium 132 mmol/L (137-145); Triglycerides 125 mg/dL (35-150); Uric Acid 5.7 mg/dL (3.5-8.5)
[2024-05-11 17:03] LABS: Erythrocyte Sedimentation Rate > 140 MM/HR (0-15)
[2024-05-11 17:25] LABS: Prostate Specific Antigen 0.782 ng/mL (0.10-4.00)
== END ==
PROVIDERS: PCP Family Medicine; Referring Provider Family Medicine; Visit Provider Family Medicine
DX: Z00.00 Encounter for general adult medical examination without abnormal findings (principal); E87.5 Hyperkalemia; R73.03 Prediabetes; I10 Essential (primary) hypertension; N19 Unspecified kidney failure
CPT/HCPCS: 36415; 80053; 80061; 83036; 84153; 84550; 85025; 85651

== ENCOUNTER → 2024-05-18 13:25 | Outpatient (CLI) | payer OTHER, MEDICAID, SELFPAY ==
[2024-05-18 14:39] LABS: Add Manual Diff / Slide Review NO; Basophils Absolute Auto 100 /uL (0-100); Basophils Percent Auto 0.5 % (0-2); Eosinophils Absolute Auto 100 /uL (0-450); Eosinophils Percent Auto 1.3 % (2-4); Hematocrit 24.8 % (41-53); Hemoglobin 8.5 g/dL (13.5-17.5); Lymphocytes Absolute Auto 900 /uL (1100-4500); Lymphocytes Percent Auto 8.7 % (25-40); Mean Corpuscular HGB Conc 34.2 % (30-36); Mean Corpuscular Hemoglobin 33.2 PG (26-34); Mean Corpuscular Volume 97.1 fL (80-100); Monocytes Absolute Auto 600 /uL (0-900); Monocytes Percent Auto 6.3 % (3-14); Neutrophils Absolute Auto 8500 /uL (1500-7000); Neutrophils Percent Auto 83.2 % (50-75); Platelet Count 226 X10^3/uL (150-400); Red Blood Cell Count 2.55 X10^6/uL (4.5-5.9); Red Cell Distribution Width 14.6 % (11.6-14.8); White Blood Cell Count 10.2 X10^3/uL (4.5-11.0)
[2024-05-18 15:00] LABS: HEMOLYSIS < 15 (0-50); Iron 53 ug/dL (49-181)
[2024-05-18 15:12] LABS: Reticulocyte Count, Percent 3.7 % (0.9-2.6)
[2024-05-18 15:13] LABS: Percent Iron Saturation 21 % (20-50); Total Iron Binding Capacity 252 ug/dL (261-462); Transferrin 184 mg/dL (206-381)
[2024-05-18 15:50] LABS: Vitamin B12 898 pg/mL (239-931)
== END ==
LOC: LAB 13:26
PROVIDERS: PCP Family Medicine; Referring Provider Family Medicine; Visit Provider Family Medicine
DX: D64.9 Anemia, unspecified (principal); R73.9 Hyperglycemia, unspecified; N18.6 End stage renal disease; I12.0 Hypertensive chronic kidney disease with stage 5 chronic kidney disease or end stage renal disease
CPT/HCPCS: 36415; 82607; 82668; 83540; 83550; 85025; 85045

== ENCOUNTER → 2024-10-09 12:01 | Outpatient (CLI) | payer OTHER, SELFPAY ==
[2024-10-09 12:54] LABS: Add Manual Diff / Slide Review NO; Basophils Absolute Auto 0 /uL (0-100); Basophils Percent Auto 0.8 % (0-2); Eosinophils Absolute Auto 200 /uL (0-450); Eosinophils Percent Auto 3.4 % (2-4); Hemoglobin 12.2 g/dL (13.5-17.5); Lymphocytes Absolute Auto 1000 /uL (1100-4500); Lymphocytes Percent Auto 18.3 % (25-40); Mean Corpuscular Hemoglobin 30.2 PG (26-34); Mean Corpuscular Volume 91.4 fL (80-100); Monocytes Absolute Auto 400 /uL (0-900); Monocytes Percent Auto 8.2 % (3-14); Neutrophils Absolute Auto 3700 /uL (1500-7000); Neutrophils Percent Auto 69.3 % (50-75); Platelet Count 128 X10^3/uL (150-400); Red Blood Cell Count 4.05 X10^6/uL (4.5-5.9); Red Cell Distribution Width 15.8 % (11.6-14.8); White Blood Cell Count 5.3 X10^3/uL (4.5-11.0)
[2024-10-09 12:57] LABS: Reticulocyte Count, Percent 2.3 % (0.9-2.6)
[2024-10-09 12:59] LABS: Hemoglobin A1C% w Est Avg Glu 4.4 % (4.0-6.0)
[2024-10-09 13:30] LABS: Alanine Aminotransferase 22 IU/L (<50); Albumin 4.3 g/dL (3.5-5.0); Albumin Globulin Ratio 1.4 (1.0-2.8); Alkaline Phosphatase 118 U/L (38-126); Aspartate Aminotransferase 47 IU/L (17-59); Bilirubin Total 0.5 mg/dL (0.2-1.3); Blood Urea Nitrogen 39 mg/dL (9-20); Carbon Dioxide 28 mmol/L (22-32); Chloride 90 mmol/L (98-107); Estimated Glomerular Filt Rate 6 mL/min (>60); Globulin 3.1 g/dL (1.7-4.1); Glucose 89 mg/dL (80-110); HEMOLYSIS < 15 (0-50); Iron 114 ug/dL (49-181); Sodium 131 mmol/L (137-145); Total Protein 7.4 g/dL (6.3-8.2)
[2024-10-09 13:41] LABS: Potassium 5.4 mmol/L (3.4-5.1)
[2024-10-09 14:01] LABS: Ferritin 218 ng/mL (18-464)
[2024-10-11 11:11] LABS: Erythropoietin 65.1 mIU/mL (2.6-18.5)
== END ==
LOC: LAB 12:01
PROVIDERS: PCP Family Medicine; Referring Provider Family Medicine; Visit Provider Family Medicine
DX: D64.9 Anemia, unspecified (principal); K80.20 Calculus of gallbladder without cholecystitis without obstruction; I12.0 Hypertensive chronic kidney disease with stage 5 chronic kidney disease or end stage renal disease; N18.6 End stage renal disease; R73.9 Hyperglycemia, unspecified; L03.031 Cellulitis of right toe; R73.03 Prediabetes
CPT/HCPCS: 36415; 80053; 82668; 82728; 83036; 83540; 85025; 85045

== ENCOUNTER → 2024-12-31 16:26 | Outpatient (CLI) | payer OTHER, SELFPAY | LOC: LAB 16:29 | PROVIDERS: PCP Family Medicine; Visit Provider Physician Assistant | DX: K13.0 Diseases of lips (principal) | CPT/HCPCS: 87252 ==

== ENCOUNTER → 2024-12-31 16:36 | Outpatient (CLI) | payer OTHER, SELFPAY ==
--- NOTE | 2024-12-31 16:38 | DI.RAD.S_ITS ---
PROCEDURE: XR CHEST 2V INDICATIONS: cough x 2 weeks, recent pneumonia TECHNIQUE: 2 views of the chest were acquired. COMPARISON: [facility], CR, XR CHEST 2 VIEWS, 11/12/2024, 10:23. FINDINGS: Surgical changes and devices: None. Lungs and pleura: Lungs are clear. No pleural effusions or pneumothorax. Mediastinum: Mediastinal contours are normal. Heart size is normal. Bones and chest wall: No suspicious bony abnormalities. Soft tissues appear unremarkable. IMPRESSION: No acute cardiopulmonary abnormality is seen. Dictated by: Olivier Hernández M.D. on 01/01/2025 at 13:03 Approved by: Olivier Hernández M.D. on 01/01/2025 at 13:04
== END ==
LOC: RAD 16:37
PROVIDERS: PCP Family Medicine; Referring Provider Physician Assistant; Visit Provider Physician Assistant
DX: J06.9 Acute upper respiratory infection, unspecified (principal); K13.0 Diseases of lips
CPT/HCPCS: 71046; 87252